=== PATIENT | female | born 1975 | race Caucasian/White ===

== ENCOUNTER 2016-04-14 23:46 | Emergency (ER) | payer OTHER ==
[~2016-04-14 23:46] MED LIST: ALBUTEROL17 GM INH; ALPRAZOLAM PO; BACTRIM DS TABL1 TA1; BACTRIM DS TABL1 TA1 PO; BACTRIM DS TABL1 TA2 PO; BENTYL20 MG DOB; CEFDINIR300 M2 PO; CIPRO PO; FLEXERIL10 MG PO; HYDROCODON-ACE1 EAC7 PO; MAGIC MOUTHWASH PO; MEDROL4 MG/DOSE- PO; NO MEDICATIONS; PHENERGAN25 MG PO; PREDNISONE PO; PYRIDIUM100 MG; ROBAXIN; TESSALON PERLE100 M1 PO; TESSALON200 MG PO; VOLTAREN75 MG PO; ZOFRAN PO
== END 2016-04-15 00:12 | disposition home or self-care (01) ==
LOC: SED 23:46
DX: L50.9 Urticaria, unspecified (principal); F17.200 Nicotine dependence, unspecified, uncomplicated
CPT/HCPCS: 99282

== ENCOUNTER 2016-04-21 21:48 | Emergency (ER) | payer OTHER | END 2016-04-21 22:33 | disposition home or self-care (01) | LOC: SED 21:48 | DX: L50.9 Urticaria, unspecified (principal); F17.210 Nicotine dependence, cigarettes, uncomplicated | CPT/HCPCS: 99282 ==

== ENCOUNTER 2016-08-14 17:45 | Emergency (ER) | payer OTHER ==
[2016-08-14] MEDS ORDERED: NYSTATIN100000 UN1 PO (19:54)
== END 2016-08-14 19:54 | disposition home or self-care (01) ==
LOC: SED 17:45
DX: J06.9 Acute upper respiratory infection, unspecified (principal); B37.0 Candidal stomatitis; F17.210 Nicotine dependence, cigarettes, uncomplicated
CPT/HCPCS: 82947; 87651; 99283